=== PATIENT | male | born 1995 | race Two or more races ===

== ENCOUNTER 2018-04-04 18:39 | Emergency (ER) | payer MEDICAID, SELFPAY | END 2018-04-04 20:35 | disposition home or self-care (01) | LOC: M ED 18:39 | DX: S90.32XA Contusion of left foot, initial encounter (principal); W19.XXXA Unspecified fall, initial encounter; Y92.89 Other specified places as the place of occurrence of the external cause; Y93.02 Activity, running; Z87.891 Personal history of nicotine dependence; Z88.8 Allergy status to other drugs, medicaments and biological substances | CPT/HCPCS: 73630 ==

== ENCOUNTER 2018-08-18 19:06 | Emergency (ER) | payer MEDICAID ==
[2018-08-18] MEDS: BACITRACIN OINT 30GM TOP (19:45)
[2018-08-18] MEDS: KETOROLAC TROMETHAMINE 10 MG TAB PO (19:45)
[2018-08-18] MEDS: NORCO 5/325MG TABLET (BULK FOR ED) PO (19:45)
[2018-08-18] MEDS: ADACEL/BOOSTRIX VACCINE (DIPHTH/PERTUSS/ACELL/TETANUS)0.5ML SYR (90715) IM (20:02)
== END 2018-08-18 20:15 | disposition home or self-care (01) ==
LOC: M ED 19:06
DX: T23.201A Burn of second degree of right hand, unspecified site, initial encounter (principal); X15.2XXA Contact with hotplate, initial encounter; Y92.512 Supermarket, store or market as the place of occurrence of the external cause; Y99.0 Civilian activity done for income or pay; Z87.891 Personal history of nicotine dependence
CPT/HCPCS: 90715

== ENCOUNTER 2018-08-20 11:12 | Emergency (ER) | payer MEDICAID | END 2018-08-20 12:52 | disposition home or self-care (01) | LOC: M ED 11:12 | DX: T23.201D Burn of second degree of right hand, unspecified site, subsequent encounter (principal); Y92.9 Unspecified place or not applicable; Y93.9 Activity, unspecified; Z87.891 Personal history of nicotine dependence | CPT/HCPCS: 99283 ==

== ENCOUNTER 2021-09-02 21:36 | Emergency (ER) | payer MEDICAID ==
[~2021-09-02] VITALS: Ht 177.8 cm; Wt 108.9 kg
[~2021-09-02 21:36] MED LIST: BACI50OI TOP; HYDR-3715 PO; KETO10TAB PO
--- OUTSIDE RECORDS SUMMARY | 2021-09-02 21:49 | CCD ---
Author Author [facility] Organization [facility] Address Unknown Phone Unavailable Support Name Relationship Address Phone EZ TECH Next Of Kin [address] [place] [address] UE Next Of Kin Unknown Unavailable AEROPOSTALE Next Of Kin [address] [place] [address] Alena LOCO Next Of Kin [address] [place] [address] SHYAM SERNA Next Of Kin [address] [place] [address] Re-disclosure Warning The records that you are about to access may contain information from federally-assisted alcohol or drug abuse programs. If such information is present, then the following federally mandated warning applies: This information has been disclosed to you from records protected by federal confidentiality rules (42 CFR part 2). The federal rules prohibit you from making any further disclosure of this information unless further disclosure is expressly permitted by the written consent of the person to whom it pertains or as otherwise permitted by 42 CFR part 2. A general authorization for the release of medical or other information is NOT sufficient for this purpose. The Federal rules restrict any use of the information to criminally investigate or prosecute any alcohol or drug abuse patient.The records that you are about to access may contain highly sensitive health information, the redisclosure of which is protected by Article 27-F of the [facility] Public Health law. If you continue you may have access to information: Regarding HIV / AIDS; Provided by facilities licensed or operated by the [facility] Office of Mental Health; or Provided by the [facility] Office for People With Developmental Disabilities. If such information is present, then the following [facility] mandated warning applies: This information has been disclosed to you from confidential records which are protected by state law. State law prohibits you from making any further disclosure of this information without the specific written consent of the person to whom it pertains, or as otherwise permitted by law. Any unauthorized further disclosure in violation of state law may result in a fine or intermediate sentence or both. A general authorization for the release of medical or other information is NOT sufficient authorization for further disc losure. Medications No Information Insurance Providers Payer name Policy type / Coverage type Policy ID Covered green party ID Covered green party's relationship to potter Policy Potter Plan Information MEDICAID M [id number] S [id number] SELF PAY O [id number] S [id number] [facility] [id number] SP [id number] MEDICAID [id number] SP [id number] SELF PAY ONLY [id number] SP [id number] Problems, Conditions, and Diagnoses No Information Surgeries/Procedures No Information Results No Information Social History No Information
[2021-09-02] MEDS ORDERED: methylPREDNISolone 125MG 2ML VIAL IV ONE (21:55)
[2021-09-02] MEDS ORDERED: NS 1,000 ML IV ONE (21:55)
[2021-09-02] MEDS ORDERED: diphenhydrAMINE 50MG/ML VIAL (J1200) IV ONE (21:55)
[2021-09-02] MEDS ORDERED: FAMOTIDINE INJ 20MG/2ML VIAL (S0028 PER 1) IVP ONE (21:55)
[2021-09-02 23:00] VITALS: BP 122/72
[2021-09-02] MEDS ORDERED: PRED20TA PO (23:03)
[2021-09-02] MEDS ORDERED: BENA25CA4 PO (23:03)
--- OUTSIDE RECORDS SUMMARY | 2021-09-04 11:37 | CCD ---
Author Author [facility] Organization [facility] Address Unknown Phone Unavailable Support Name Relationship Address Phone EZ TECH Next Of Kin [address] [place] [address] UE Next Of Kin Unknown Unavailable AEROPOSTALE Next Of Kin [address] [place] [address] Alena LOCO Next Of Kin [address] [place] [address] SHYAM SERNA Next Of Kin [address] [place] [address] Re-disclosure Warning The records that you are [...] is protected by Article 27-F of the [facility] Public Health law. If you continue you may have access to information: Regarding HIV / AIDS; Provided by facilities licensed or operated by the [facility] Office of Mental Health; or Provided by the [facility] Office for People With Developmental Disabilities. If such information is present, then the following [facility] mandated warning applies: This information has [...] law may result in a fine or halfway sentence or both. A general authorization for the release of medical or other information is NOT sufficient authorization for further disc losure. Medications No Information Insurance Providers Payer name Policy type / Coverage type Policy ID Covered green party ID Covered green party's relationship to potter Policy Potter Plan Information MEDICAID M [id number] S [id number] SELF PAY O [id number] S [id number] [facility] PLAN [facility] [id number] SP [id number] MEDICAID [id number] SP [id number] SELF PAY ONLY [id number] SP [id number] Problems, Conditions, and Diagnoses No Information Surgeries/Procedures No Information Results No Information Social History No Information
== END 2021-09-02 23:16 | disposition home or self-care (01) ==
LOC: M ED 21:36
DX: R21 Rash and other nonspecific skin eruption (principal); R22.0 Localized swelling, mass and lump, head; T78.1XXA Other adverse food reactions, not elsewhere classified, initial encounter; Y92.89 Other specified places as the place of occurrence of the external cause; F17.210 Nicotine dependence, cigarettes, uncomplicated
CPT/HCPCS: 93041; 94760; 96361; 96374; 96375; 99284; J1200; J2930

== ENCOUNTER 2021-10-12 18:35 | Emergency (ER) | payer OTHER ==
[~2021-10-12] VITALS: Ht 177.8 cm; Wt 109.1 kg
[~2021-10-12 18:35] MED LIST changes: +BENA25CA4 PO; +PRED20TA PO
[2021-10-12 18:36] VITALS: BP 129/74
== END 2021-10-12 22:20 | disposition left against medical advice (07) ==
LOC: M ED 18:35
DX: Z53.29 Procedure and treatment not carried out because of patient's decision for other reasons (principal)

== ENCOUNTER 2021-12-11 05:06 | Emergency (ER) | payer OTHER ==
[~2021-12-11] VITALS: Ht 180.3 cm; Wt 110.2 kg
[2021-12-11] MEDS ORDERED: EPIP0.3I2 IM (05:13)
[2021-12-11] MEDS ORDERED: methylPREDNISolone 125MG 2ML VIAL IM ONE (07:15)
[2021-12-11] MEDS ORDERED: diphenhydrAMINE 50MG CAP PO ONE (07:15)
[2021-12-11] MEDS ORDERED: FAMOTIDINE 20 MG TAB PO ONE (07:15)
[2021-12-11] MEDS ORDERED: PRED20TA PO (07:28)
[2021-12-11] MEDS ORDERED: FAMO20TA PO (07:28)
[2021-12-11 07:34] VITALS: BP 132/81
== END 2021-12-11 07:27 | disposition home or self-care (01) ==
LOC: M ED 05:06
DX: L50.9 Urticaria, unspecified (principal); Z79.899 Other long term (current) drug therapy; F17.210 Nicotine dependence, cigarettes, uncomplicated
CPT/HCPCS: 96372; 99283; J2930

== ENCOUNTER 2022-05-04 13:19 | Emergency (ER) | payer OTHER ==
[~2022-05-04] VITALS: Ht 177.8 cm; Wt 112.0 kg
[~2022-05-04 13:19] MED LIST changes: +EPIP0.3I2 IM; +FAMO20TA PO
[2022-05-04 13:20] VITALS: BP 133/89
== END 2022-05-04 15:22 | disposition home or self-care (01) ==
LOC: M ED 13:19
DX: Z04.1 Encounter for examination and observation following transport accident (principal); M25.512 Pain in left shoulder

== ENCOUNTER 2022-06-12 10:26 | Emergency (ER) | payer OTHER ==
[~2022-06-12] VITALS: Ht 177.8 cm; Wt 109.9 kg
[2022-06-12 11:42] VITALS: BP 140/92
== END 2022-06-12 11:43 | disposition home or self-care (01) ==
LOC: M ED 10:26
DX: M79.671 Pain in right foot (principal)

== ENCOUNTER 2022-08-29 07:50 | Emergency (ER) | payer OTHER ==
[~2022-08-29] VITALS: Ht 180.3 cm; Wt 108.0 kg
[2022-08-29] MEDS ORDERED: IBUPROFEN 600MG TAB PO ONE (08:55)
[2022-08-29] MEDS ORDERED: IBUP-1022 PO (10:23)
[2022-08-29] MEDS ORDERED: METH-1165 PO (10:23)
[2022-08-29 10:41] VITALS: BP 130/65
== END 2022-08-29 10:46 | disposition home or self-care (01) ==
LOC: M ED 07:50
DX: S39.012A Strain of muscle, fascia and tendon of lower back, initial encounter (principal); X50.3XXA Overexertion from repetitive movements, initial encounter; Y93.54 Activity, bowling

== ENCOUNTER 2023-04-07 13:42 | Emergency (ER) | payer OTHER ==
[~2023-04-07] VITALS: Ht 180.3 cm; Wt 109.5 kg
[~2023-04-07 13:42] MED LIST changes: +IBUP-1022 PO; +METH-1165 PO
[2023-04-07 15:15] VITALS: BP 135/93; TEMP 97.3; O2SAT 99
== END 2023-04-07 15:22 | disposition home or self-care (01) ==
LOC: M ED 13:42
DX: M75.22 Bicipital tendinitis, left shoulder (principal); F12.90 Cannabis use, unspecified, uncomplicated; Z79.899 Other long term (current) drug therapy